=== PATIENT | female | born 1950 | race Caucasian/White ===

== ENCOUNTER 2021-04-28 18:30 | Emergency (ER) | payer MEDICARE, OTHER ==
[2021-04-28] MEDS ORDERED: Benzonatate 100 MG Cap PO ONE (18:31)
[2021-04-28] MEDS ORDERED: predniSONE 20 MG Tab PO ONE (18:31)
[2021-04-28] MEDS ORDERED: Amoxicillin/Clavulanate K 875-125 MG Tab PO ONE (18:31)
[2021-04-28 19:45] LABS: ANION GAP 15.4 mEq/L (7-13)
[2021-04-28 20:17] LABS: CORONAVIRUS COVID-19 NAA NEGATIVE (NEGATIVE); RESPIRATORY SYNCYTIAL VIR NAA POSITIVE (NEGATIVE)
--- NOTE | 2021-04-28 20:22 | EDM.PDOC ---
ED HPI GENERAL MEDICAL PROBLEM - General Chief Complaint: Respiratory Problem Stated Complaint: SHORTNESS OF BREATH Time Seen by Provider: 04/28/21 19:50 Source of Information: Reports: Patient, RN History Limitations: Reports: No Limitations - History of Present Illness INITIAL COMMENTS - FREE TEXT/NARRATIVE: ED with spuse reports c/o cough congestion productive at times yellow phlegm, increased SOB pst 2 days, Was seen in urgent care on Tuesday started on azithromycin and told lower respiratory infection. no xrays or testing done. Spouse seen and diagnosed with RSV. Denies exposure to COVID. Hx rheumatoid arthritis on methotrexate. Has home O2 oximeter and noted reading in 80's. Decreased appetite no vomiting or diarrhea. No loss of taste or smell. Has received COVID vaccine. - Related Data Allergies Allergy/AdvReac Type Severity Reaction Status Date / Time meperidine [From Demerol] Allergy Hives Verified 04/28/21 19:20 Sulfa (Sulfonamide Allergy Hives Verified 04/28/21 19:20 Antibiotics) Home Meds: Home Meds Aspirin [Aspirin EC] 81 mg PO DAILY 04/28/21 [History] Folic Acid/Multivit,Iron,Hitting Coach [One Daily Complete] 1 each PO DAILY 04/28/21 [History] Levothyroxine [Synthroid] 100 mcg PO ACBREAKFAST 04/28/21 [History] Methotrexate 25 mg PO WEEKLY 04/28/21 [History] Metoprolol Tartrate [Lopressor] 25 mg PO Q12HR 04/28/21 [History] Multivitamin 1 each PO DAILY 04/28/21 [History] Pravastatin [Pravachol] 20 mg PO DAILY 04/28/21 [History] Warfarin [Coumadin] 2.5 mg PO .2X/WK 04/28/21 [History] Warfarin [Coumadin] 5 mg PO .5 DAYS/WK 04/28/21 [History] amLODIPine [Norvasc] 5 mg PO BID 04/28/21 [History] Past Medical History Cardiovascular History: Reports: Bypass, High Cholesterol, Hypertension 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: Musculoskeletal History: Reports: RA Endocrine/Metabolic History: Reports: Hypothyroidism - Infectious Disease History Infectious Disease History: Reports: Chicken Pox, Measles - Past Surgical History HEENT Surgical History: Reports: Cataract Surgery, Tonsillectomy Cardiovascular Surgical History: Reports: Valve Replacement, Other (See Below) Other Cardiovascular Surgeries/Procedures: echmo x6 wks Social & Family History - Tobacco Use Tobacco Use Status *Q: Never Tobacco User Second Hand Smoke Exposure: No - Caffeine Use Caffeine Use: Reports: None - Recreational Drug Use Recreational Drug Use: No ED ROS GENERAL - Review of Systems Review Of Systems: Comprehensive ROS is negative, except as noted in HPI. ED EXAM, GENERAL - Physical Exam Exam: See Below Exam Limited By: No Limitations General Appearance: Alert, Mild Distress Eye Exam: Bilateral Eye: EOMI Ears: Normal External Exam, Hearing Loss Nose: Normal Inspection Throat/Mouth: Normal Inspection Head: Atraumatic, Normocephalic Neck: Normal Inspection Respiratory/Chest: Rhonchi (bilateral), Other (frequent loose bronchial cough non productive). No: Wheezing, Retractions Cardiovascular: Normal Peripheral Pulses, Regular Rate, Rhythm GI/Abdominal: Normal Bowel Sounds, Soft Back Exam: Normal Inspection Extremities: Normal Inspection, Normal Range of Motion Neurological: Alert, Oriented, Normal Cognition Psychiatric: Normal Affect, Normal Mood Skin Exam: Warm, Dry, Intact, Normal Color Course - Vital Signs Last Recorded V/S: Last Vital Signs Temp 97.8 F 04/28/21 19:15 Pulse 79 04/28/21 19:15 Resp 18 04/28/21 19:15 BP 133/64 04/28/21 19:15 Pulse Ox 95 04/28/21 19:15 - Orders/Labs/Meds Orders: Active Orders 24 hr Category Date Time Status CULTURE BLOOD [BC] Stat Lab 04/28/21 19:19 Received Labs: Laboratory Tests 04/28/21 04/28/21 04/28/21 Range/Units 19:15 19:19 19:19 WBC 6.7 (5.0-10.0) 10^3/uL RBC 3.96 L (4.2-5.4) 10^6/uL Hgb 12.5 (12.0-16.0) g/dL Hct 38.2 (37.0-47.0) % MCV 96.5 (80-100) fL MCH 31.6 (27.0-34.0) pg MCHC 32.7 L (33.0-35.0) g/dL Plt Count 231 (150-450) 10^3/uL Neut % (Auto) 68.4 (42.2-75.2) % Lymph % (Auto) 17.8 L (20.5-50.1) % [place] % (Auto) 9.7 H (2-8) % Eos % (Auto) 3.7 H (1.0-3.0) % Baso % (Auto) 0.4 (0.0-1.0) % PT 31.5 H (9.0-12.0) SEC INR 3.2 H (0.9-1.2) D-Dimer, Quantitative (0-400) ng/mL Sodium (136-145) mmol/L Potassium (3.5-5.1) mmol/L Chloride (98-107) mmol/L Carbon Dioxide (21-32) mmol/L Anion Gap (7-13) mEq/L BUN (7-18) mg/dL Creatinine (0.55-1.02) mg/dL Est Cr Clr Drug Dosing mL/min Estimated GFR (MDRD) BUN/Creatinine Ratio (No establ ref range) Glucose (70-99) mg/dL Lactic Acid (0.4-2.0) mmol/L Calcium (8.5-10.1) mg/dL Total Bilirubin (0.2-1.0) mg/dL AST (15-37) U/L ALT (14-59) U/L Alkaline Phosphatase (46-116) U/L C-Reactive Protein (0.0-0.9) mg/dL B-Natriuretic Peptide (0-100) pg/ml Total Protein (6.4-8.2) g/dL Albumin (3.4-5.0) g/dL Globulin Albumin/Globulin Ratio Influenza Type A RNA Negative (NEGATIVE) RSV RNA (INAAT) Positive H (NEGATIVE) Influenza Type B RNA Negative (NEGATIVE) SARS-CoV-2 RNA (DEANDRA) Negative (NEGATIVE) 04/28/21 04/28/21 04/28/21 Range/Units 19:19 19:19 19:19 WBC (5.0-10.0) 10^3/uL RBC (4.2-5.4) 10^6/uL Hgb (12.0-16.0) g/dL Hct (37.0-47.0) % MCV (80-100) fL MCH (27.0-34.0) pg MCHC (33.0-35.0) g/dL Plt Count (150-450) 10^3/uL Neut % (Auto) (42.2-75.2) % Lymph % (Auto) (20.5-50.1) % [place] % (Auto) (2-8) % Eos % (Auto) (1.0-3.0) % Baso % (Auto) (0.0-1.0) % PT (9.0-12.0) SEC INR (0.9-1.2) D-Dimer, Quantitative 284 (0-400) ng/mL Sodium 141 (136-145) mmol/L Potassium 4.4 (3.5-5.1) mmol/L Chloride 103 (98-107) mmol/L Carbon Dioxide 27 (21-32) mmol/L Anion Gap 15.4 H (7-13) mEq/L BUN 19 H (7-18) mg/dL Creatinine 0.99 (0.55-1.02) mg/dL Est Cr Clr Drug Dosing 40.62 mL/min Estimated GFR (MDRD) 55 BUN/Creatinine Ratio 19.2 (No establ ref range) Glucose 95 (70-99) mg/dL Lactic Acid 0.7 (0.4-2.0) mmol/L Calcium 8.4 L (8.5-10.1) mg/dL Total Bilirubin 0.5 (0.2-1.0) mg/dL AST 45 H (15-37) U/L ALT 48 (14-59) U/L Alkaline Phosphatase 129 H (46-116) U/L C-Reactive Protein 1.6 H (0.0-0.9) mg/dL B-Natriuretic Peptide 205 H (0-100) pg/ml Total Protein 7.2 (6.4-8.2) g/dL Albumin 3.7 (3.4-5.0) g/dL Globulin 3.5 Albumin/Globulin Ratio 1.1 Influenza Type A RNA (NEGATIVE) RSV RNA (INAAT) (NEGATIVE) Influenza Type B RNA (NEGATIVE) SARS-CoV-2 RNA (DEANDRA) (NEGATIVE) Meds: Medications Discontinued Medications Generic Name Dose Route Start Last Admin Trade Name Freq PRN Reason Stop Dose Admin Amoxicillin/Clavulanate Potassium Confirm 04/28/21 20:53 04/28/21 21:11 Amoxicillin/Clavulanate K 875-125 Mg Tab Administered 04/28/21 20:54 Not Given Dose 2 tab .ROUTE .STK-MED ONE Benzonatate Confirm 04/28/21 20:52 04/28/21 21:11 Benzonatate 100 Mg Cap Administered 04/28/21 20:53 Not Given Dose 400 mg .ROUTE .STK-MED ONE Methylprednisolone Sodium Succinate 125 mg 04/28/21 20:39 04/28/21 20:56 Methylprednisolone Sodium Succinate 125 Mg/2 Ml Sdv IVPUSH 04/28/21 20:40 125 mg ONETIME ONE Administration Prednisone Confirm 04/28/21 20:53 04/28/21 21:11 Prednisone 20 Mg Tab Administered 04/28/21 20:54 Not Given Dose 40 mg .ROUTE .STK-MED ONE - Re-Assessments/Exams Free Text/Narrative Re-Assessment/Exam: 04/29/21 06:21 at rest room air sats mid 90's. ambulatory in room and maintained greater than 93%. Frequent nonproductive bronchial cough. Departure - Departure Time of Disposition: 20:56 Disposition: Home, Self-Care 01 Condition: Fair Clinical Impression: RSV (respiratory syncytial virus infection), Cough, Hx of rheumatoid arthritis, Chronic anticoagulation - Discharge Information *PRESCRIPTION DRUG MONITORING PROGRAM REVIEWED*: No *COPY OF PRESCRIPTION DRUG MONITORING REPORT IN PATIENT LUIS ENRIQUE: No Instructions: Cough, Adult, [id number], Respiratory Syncytial Virus Infection, Adult Referrals: PCP,None [Primary Care Provider] - Forms: ED Department Discharge Additional Instructions: Prednisone taper continue azithromycin augmentin 875/125 one twice daily tesselon 200mg one every 8 hours as needed for cough continue robitussin or muccinex to loosen phlegm clinic recheck Tuesday and check INR urgent follow up if worsening symptoms fever and shortness of breath Sepsis Event Note (ED) - Evaluation Sepsis Screening Result: No Definite Risk - Focused Exam Vital Signs: Vital Signs Temp Pulse Resp BP Pulse Ox 04/28/21 19:15 97.8 F 79 18 133/64 95 - My Orders Last 24 Hours: My Active Orders 04/28/21 19:19 CULTURE BLOOD [BC] Stat - Assessment/Plan Last 24 Hours: My Active Orders 04/28/21 19:19 CULTURE BLOOD [BC] Stat
--- NOTE | 2021-04-28 20:54 | CR ---
PROCEDURE INFORMATION: Exam: XR Chest Exam date and time: 04/28/2021 8:25 PM Age: 70 years old Clinical indication: Cough TECHNIQUE: Imaging protocol: XR of the chest. Views: 1 view. COMPARISON: No relevant prior studies available. FINDINGS: Lungs: Bibasilar opacities most likely reflect scarring versus atelectasis. No definite evidence of consolidation. Pleural spaces: Unremarkable. No pleural effusion. No pneumothorax. Heart/Mediastinum: Moderate cardiomegaly. Vascular stent in place. Tortuous, atherosclerotic thoracic aorta. Bones/joints: Sternotomy wires. No acute fracture demonstrated. IMPRESSION: Bibasilar opacities most likely reflect atelectasis or scarring. No definite acute abnormality.
[2021-04-28] MEDS: methylPREDNISolone Sodium Succinate 125 MG/2 ML SDV IVPUSH ONE (20:56)
[2021-04-28] MEDS: Benzonatate 100 MG Cap ONE (21:11)
[2021-04-28] MEDS: predniSONE 20 MG Tab ONE (21:11)
[2021-04-28] MEDS: Amoxicillin/Clavulanate K 875-125 MG Tab ONE (21:11)
== END 2021-04-28 21:12 | disposition home or self-care (01) ==
LOC: DL.ED 18:30
DX: R05 Cough (principal); B97.4 Respiratory syncytial virus as the cause of diseases classified elsewhere; M06.9 Rheumatoid arthritis, unspecified; E78.00 Pure hypercholesterolemia, unspecified; I10 Essential (primary) hypertension; E03.9 Hypothyroidism, unspecified; Z88.5 Allergy status to narcotic agent; Z88.2 Allergy status to sulfonamides; Z79.82 Long term (current) use of aspirin; Z79.01 Long term (current) use of anticoagulants; Z79.899 Other long term (current) drug therapy; Z20.822 Contact with and (suspected) exposure to COVID-19
CPT/HCPCS: 0241U; 36415; 71045; 80053; 83605; 83880; 85025; 85379; 85610; 86140; 87040; 96374; 99285; A9270; J2930; J7512